=== PATIENT | female | born 1985 | race Caucasian/White ===

== ENCOUNTER 2018-06-09 16:06 | Emergency (ER) | payer OTHER ==
[2018-06-09 16:28] VITALS: TEMP 98.6; BMI 27.7
[2018-06-09] MEDS ORDERED: MECLIZINE HCL 25 MG TABLET (FP) PO ONE (17:47)
--- NOTE | 2018-06-09 17:47 | PDOC ---
History of Present Illness - General Chief Complaint: Lightheaded Stated Complaint: DIZZINESS Time Seen by Provider: 06/09/18 17:06 History Source: Patient - History of Present Illness Initial Comments: 06/09/18 18:59 32F with no pmh presents to the ED for on/off dizziness/vertigo since she woke up today. Also complains of headache, somewhat blurry vision. Exacerbated by standing up. Not exacerbated by movement, seems random, No nausea, vomiting. Never had this happened to her before. 06/09/18 19:00 Past History - Past Medical History Allergies/Adverse Reactions: Allergies Allergy/AdvReac Type Severity Reaction Status Date / Time No Known Allergies Allergy Verified 06/09/18 16:25 Home Medications: Ambulatory Orders NK [No Known Home Medication] 06/09/18 Asthma: No Cancer: No Cardiac Disorders: No Diabetes: No HTN: No Seizures: No Thyroid Disease: No - Suicide/Smoking/Psychosocial Hx Smoking History: Never smoked Have you smoked in the past 12 months: No Hx Alcohol Use: No Drug/Substance Use Hx: No Hx Substance Use Treatment: No Review of Systems - Review of Systems Able to Perform ROS?: Yes Is the patient limited Albanian proficient: No Constitutional: No: Symptoms Reported HEENTM: Yes: See HPI Respiratory: No: Symptoms reported Cardiac (ROS): No: Symptoms Reported ABD/GI: No: Symptoms Reported : No: Symptoms Reported Musculoskeletal: No: Symptoms Reported Integumentary: No: Symptoms Reported Neurological: Yes: See HPI *Physical Exam - Vital Signs Last Vital Signs Temp Pulse Resp BP Pulse Ox 98.6 F 61 18 115/51 L 99 06/09/18 16:27 06/09/18 16:27 06/09/18 16:27 06/09/18 16:27 06/09/18 16:27 - Physical Exam General Appearance: Yes: Nourished, Appropriately Dressed. No: Apparent Distress HEENT: positive: EOMI, [place], Normal ENT Inspection, Other (Negative nystagmus on HITS ) Respiratory/Chest: positive: Lungs Clear, Normal Breath Sounds. negative: Chest Tender, Respiratory Distress Cardiovascular: positive: Regular Rhythm, Regular Rate, S1, S2 Gastrointestinal/Abdominal: positive: Normal Bowel Sounds, Soft. negative: Tender Extremity: positive: Normal Capillary Refill, Normal Inspection, Normal Range of Motion Integumentary: positive: Normal Color, Dry, Warm Neurologic: positive: data solutions architect II-XII NML intact, Fully Oriented, Alert, Normal Mood/ Affect, Normal Response, Motor Strength 5/5, Other (negative Romberg). negative : EOM Palsy, Facial Droop, Numbness, Disoriented, Depressed Affect Moderate Sedation - Procedure Monitoring Vital Signs: Procedure Monitoring Vital Signs Temperature 98.6 F 06/09/18 16:27 Pulse Rate 61 06/09/18 16:27 Respiratory Rate 18 06/09/18 16:27 Blood Pressure 115/51 L 06/09/18 16:27 O2 Sat by Pulse Oximetry (%) 99 06/09/18 16:27 ED Treatment Course - LABORATORY CBC & Chemistry Diagram: 06/09/18 18:22 06/09/18 18:22 Medical Decision Making - Medical Decision Making 06/09/18 19:10 Orthostatic hypotension vs BPPV vs intracranial pathology Will get basic labs, tsh since she mentionned hot flashes, Orthostatics, Treat with meclizine trial, fluids/ Unlikely to mona peripheral vs central vertigo since not exacerbated by motion, no nystagamus on HITS and on/off onset worsed with standing suggest orthostatics. Ct head pending due to neuro symptoms and headaches. Patient signed out to Dr. Jacobs *DC/Admit/Observation/Transfer Diagnosis at time of Disposition: Dizziness on standing - Referrals - Patient Instructions - Post Discharge Activity
[2018-06-09] MEDS ORDERED: MECLIZINE HCL 25 MG TABLET (FP) ONE (18:01)
[2018-06-09] MEDS ORDERED: SODIUM CHLORIDE 1,000 ML IV STA (18:07)
[2018-06-09 18:32] LABS: EOS % 1.4 % (0-4.5); HEMATOCRIT 40.9 % (32.4-45.2); HEMOGLOBIN 14.2 GM/dL (10.7-15.3); LYMPH % 39.5 % (8-40); MCH 31.1 pg (25.7-33.7); MCHC 34.6 g/dl (32.0-36.0); MEAN CELL VOLUME 89.9 fl (80-96); MEAN PLT VOLUME 9.6 fl (7.5-11.1); MONO % 8.7 % (3.8-10.2); NEUT % 49.4 % (42.8-82.8); PLATELET COUNT 234 K/MM3 (134-434); RBC 4.55 M/mm3 (3.60-5.2); RDW 14.7 % (11.6-15.6); WHITE BLOOD COUNT 8.4 K/mm3 (4.0-10.0)
[2018-06-09 18:57] LABS: ALBUMIN 3.9 g/dl (3.4-5.0); ALK PHOS 90 U/L (45-117); ANION GAP 9 MMOL/L (8-16); BILIRUBIN,TOTAL 0.4 mg/dL (0.2-1); BLOOD UREA NITROGEN 10 mg/dL (7-18); CALCIUM 8.6 mg/dL (8.5-10.1); CHLORIDE 106 mmol/L (98-107); CO2 23 mmol/L (21-32); CREATININE 0.6 mg/dL (0.55-1.3); GLUCOSE,RANDOM 88 mg/dL (74-106); POTASSIUM 3.9 mmol/L (3.5-5.1); SGOT/AST 10 U/L (15-37); SGPT/ALT 28 U/L (13-61); SODIUM 138 mmol/L (136-145); TOT PROT 7.3 g/dl (6.4-8.2)
--- NOTE | 2018-06-09 19:36 | PDOC ---
Attending Attestation - Resident Resident Name: RomelMontrell - ED Attending Attestation I have performed the following: I have examined & evaluated the patient, The case was reviewed & discussed with the resident, I agree w/resident's findings & plan, Exceptions are as noted - HPI HPI: 06/09/18 19:31 32 F with no PMH presents to ED with dizziness since waking up this morning. Pt reports room-spinning sensation that is worse with ambulation and turning her head in certain directions. Pt endorses mild headache but denies N/V. Denies neck pain or stiffness. No F/C. No ear pain. No weakness/numbness in any extremity. Pt has never had similar episode before. Pt denies FH or stroke or MD. - Physicial Exam PE: 06/09/18 19:34 "GENERAL: Awake, alert, and fully oriented, in no acute distress. HEAD: No signs of trauma EYES: PERRLA, EOMI, sclera anicteric, conjunctiva clear ENT: Auricles normal inspection, hearing grossly normal, nares patent, oropharynx clear without exudates. Moist mucosa NECK: Nontender, no stepoffs, Normal ROM, supple, no lymphadenopathy, JVD, or masses LUNGS: Breath sounds equal, clear to auscultation bilaterally. No wheezes, and no crackles HEART: Regular rate and rhythm, normal S1 and S2, no murmurs, rubs or gallops ABDOMEN: Soft, nontender, normoactive bowel sounds. No guarding, no rebound. No masses EXTREMITIES: Normal range of motion, no edema. No clubbing or cyanosis. No cords, erythema, or tenderness NEUROLOGICAL: Cranial nerves II through XII intact. 5/5 strength and sensation in all extremities, Normal speech, normal gait, normal cerebellar function SKIN: Warm, Dry, normal turgor, no rashes or lesions noted. - Medical Decision Making 06/09/18 19:36 32 F with positional room spinning dizziness since this morning. Suspect BPPV. On exam in ED, pt is well appearing with no nystagmus, no neuro deficits, ambulatory with steady gait. No risk factors for CVA but will obtain CT head given mild headache. - Labs, UA, UPT - CT head - IVF meclizine 06/09/18 19:39 Labs so far unremarkable. Pt signed out to oncoming attending, pending UA/UPT, CT head, and re-evaluation.
[2018-06-09] MEDS ORDERED: ACETAMINOPHEN 1000 MG/100 ML VIAL (NON FORMULARY) IVPB ONE (19:38)
[2018-06-09] MEDS ORDERED: METOCLOPRAMIDE HCL INJECTION 10 MG/2 ML VIAL IVPB ONE (19:38)
[2018-06-09] MEDS ORDERED: METOCLOPRAMIDE HCL INJECTION 10 MG/2 ML VIAL ONE (19:41)
[2018-06-09] MEDS ORDERED: ACETAMINOPHEN INJECTION 100 ML IVPB ONE (19:41)
[2018-06-09 20:26] LABS: URINE APPEARANCE CLEAR; URINE BILIRUBIN NEGATIVE (<2.0 mg/dL); URINE COLOR YELLOW; URINE GLUCOSE (UA) NEGATIVE (NEGATIVE); URINE KETONE NEGATIVE (NEGATIVE); URINE LEUK ESTERASE NEGATIVE (NEGATIVE); URINE NITRITE NEGATIVE (NEGATIVE); URINE PROTEIN NEGATIVE (NEGATIVE); URINE UROBILINOGEN NEGATIVE mg/dL (0.2-1.0)
--- NOTE | 2018-06-09 20:40 | PDOC ---
*Physical Exam - Vital Signs Last Vital Signs Temp Pulse Resp BP Pulse Ox 98.6 F 61 18 115/51 L 99 06/09/18 16:27 06/09/18 16:27 06/09/18 16:27 06/09/18 16:27 06/09/18 16:27 ED Treatment Course - LABORATORY CBC & Chemistry Diagram: 06/09/18 18:22 06/09/18 18:22 - ADDITIONAL ORDERS Additional order review: Laboratory Results 06/09/18 06/09/18 06/09/18 18:27 18:22 18:22 Sodium 138 Potassium 3.9 Chloride 106 Carbon Dioxide 23 Anion Gap 9 BUN 10 Creatinine 0.6 Creat Clearance w eGFR > 60 Random Glucose 88 Calcium 8.6 Total Bilirubin 0.4 AST 10 L ALT 28 Alkaline Phosphatase 90 Troponin I < 0.02 Total Protein 7.3 Albumin 3.9 TSH 2.09 Urine HCG, Qual Negative 06/09/18 18:22 RBC 4.55 MCV 89.9 MCHC 34.6 RDW 14.7 MPV 9.6 Neutrophils % 49.4 D Lymphocytes % 39.5 D Monocytes % 8.7 Eosinophils % 1.4 D Basophils % 1.0 - Medications Given in the ED: ED Medications Discontinued Medications Generic Name Dose Route Start Last Admin Trade Name Freq PRN Reason Stop Dose Admin Acetaminophen 1,000 mg 06/09/18 19:38 06/09/18 20:11 Ofirmev Injection - IVPB 06/09/18 19:39 1,000 mg ONCE ONE Administration Sodium Chloride 1,000 mls @ 1,000 mls/hr 06/09/18 18:07 06/09/18 18:38 Normal Saline - IV 06/09/18 19:06 1,000 mls/hr ASDIR STA Administration Meclizine HCl 25 mg 06/09/18 17:47 06/09/18 18:03 Antivert - PO 06/09/18 17:48 25 mg ONCE ONE Administration Metoclopramide HCl 10 mg 06/09/18 19:38 06/09/18 19:48 Reglan Injection - IVPB 06/09/18 19:39 10 mg ONCE ONE Administration Medical Decision Making - Medical Decision Making 06/09/18 20:[address] Urena 32 yo female presents to the ED with dizziness and headache. Pt received tylenol and reglan with improvement of both dizziness and HUERTA. No concerning or unilateral neurological findings. States she does not want to have the Head CT and feels much better. Dr. Frias agrees to have pt DC home with Neurology follow up and over the counter tylenol for pain. Strict return precautions given. Pt understands plan and agrees. *DC/Admit/Observation/Transfer Diagnosis at time of Disposition: Dizziness on standing Headache Qualifiers: Headache type: unspecified Headache chronicity pattern: unspecified pattern Intractability: not intractable Qualified Code(s): R51 - Headache - Discharge Dispostion Disposition: HOME Condition at time of disposition: Stable Decision to Admit order: No - Referrals Referrals: Chapin Tyson MD [Staff Physician] - - Patient Instructions Printed Discharge Instructions: DI for Headache, DI for Dizziness-Nonvertigo Additional Instructions: Por favor, jd donovan myrtle con aaron mdico de atencin primaria y el neurlogo que se lo remiti dentro de las prximas 24 a 48 horas. Beardsley el contador de Tylenol para los paula de charmaine segn sea necesario cada 4-6 horas. Regrese a la huong de emergencias para los sntomas nuevos o que empeoran, incluidos, entre otros, los siguientes: palua de [place] intensos que no mejoran con los medicamentos, cambios en la visin o el habla, debilidad o cambios sensoriales en 1 lado de aaron cuerpo. Gl[place]y Print Language: LAO - Post Discharge Activity
[2018-06-09 20:55] VITALS: BP 113/86; PULSE 65
--- NOTE | 2018-06-10 11:46 | EKG ---
Test Reason : Blood Pressure : / mmHG Vent. Rate : 045 BPM Atrial Rate : 045 BPM P-R Int : 186 ms QRS Dur : 094 ms QT Int : 450 ms P-R-T Axes : 008 072 029 degrees QTc Int : 389 ms SINUS BRADYCARDIA LOW VOLTAGE QRS BORDERLINE ECG NO PREVIOUS ECGS AVAILABLE Confirmed by RADHA DÍAZ, KAUR ([id number]) on 06/10/2018 11:45:45 AM Referred By: Confirmed By:KAUR GARCIA MD
== END 2018-06-09 21:01 | disposition home or self-care (01) ==
LOC: JER 16:06
PROC: 3E0337Z Introduction of Electrolytic and Water Balance Substance into Peripheral Vein, Percutaneous Approach (ICD-10-PCS; principal; 2018-06-09)
PROC: 3E033GC Introduction of Other Therapeutic Substance into Peripheral Vein, Percutaneous Approach (ICD-10-PCS; 2018-06-09)
PROC: 3E033NZ Introduction of Analgesics, Hypnotics, Sedatives into Peripheral Vein, Percutaneous Approach (ICD-10-PCS; 2018-06-09)
DX: R42 Dizziness and giddiness (principal)
CPT/HCPCS: 36415; 80053; 81003; 84443; 84484; 84703; 85025; 87086; 93005; 93010; 99283-25; J0131; J7030

== ENCOUNTER 2018-07-15 08:58 | Emergency (ER) | payer OTHER ==
[2018-07-15 09:10] VITALS: TEMP 98.6; BMI 27.3
[2018-07-15] MEDS ORDERED: SODIUM CHLORIDE 1,000 ML IV STA (09:37)
[2018-07-15] MEDS ORDERED: ACETAMINOPHEN 1000 MG/100 ML VIAL (NON FORMULARY) IVPB ONE (09:37)
--- NOTE | 2018-07-15 09:37 | PDOC ---
History of Present Illness - General Chief Complaint: Pain, Acute Stated Complaint: PAIN Time Seen by Provider: 07/15/18 09:23 Past History - Travel Traveled outside of the country in the last 30 days: No Close contact w/someone who was outside of country & ill: No - Past Medical History Allergies/Adverse Reactions: Allergies Allergy/AdvReac Type Severity Reaction Status Date / Time No Known Allergies Allergy Verified 07/15/18 09:07 Home Medications: Ambulatory Orders Ibuprofen 600 mg PO Q6H #30 tablet 07/15/18 Asthma: No Cancer: No Cardiac Disorders: No COPD: No Diabetes: No HTN: No Seizures: No Thyroid Disease: No - Suicide/Smoking/Psychosocial Hx Smoking History: Never smoked Have you smoked in the past 12 months: No Hx Alcohol Use: No Drug/Substance Use Hx: No Hx Substance Use Treatment: No Review of Systems - Review of Systems Able to Perform ROS?: Yes Comments:: 07/15/18 14:07 CONSTITUTIONAL: Absent: fever, chills, diaphoresis, generalized weakness, malaise, loss of appetite HEENT: Absent: rhinorrhea, nasal congestion, throat pain, throat swelling, difficulty swallowing, mouth swelling, ear pain, eye pain, visual Changes CARDIOVASCULAR: Absent: chest pain, loss of consciousness, palpitations, irregular heart rate, peripheral edema RESPIRATORY: Absent: cough, shortness of breath, dyspnea with exertion, orthopnea, wheezing, stridor, hemoptysis GASTROINTESTINAL: Absent: abdominal pain, abdominal distension, nausea, vomiting, diarrhea, constipation, melena, hematochezia GENITOURINARY: Absent: dysuria, frequency, urgency, hesitancy, hematuria, flank pain, genital pain MUSCULOSKELETAL: Absent: myalgia, arthralgia, joint swelling SKIN: Absent: rash, itching, pallor HEMATOLOGIC/IMMUNOLOGIC: Absent: easy bleeding, easy bruising, lymphadenopathy, frequent infections ENDOCRINE: Absent: unexplained weight gain, unexplained weight loss, heat intolerance, cold intolerance NEUROLOGIC: Absent: headache, focal weakness or paresthesias, dizziness, unsteady gait, seizure, mental status changes, bladder or bowel incontinence PSYCHIATRIC: Absent: anxiety, depression, suicidal or homicidal ideation, hallucinations. Is the patient limited Micronesian proficient: No *Physical Exam - Vital Signs Last Vital Signs Temp Pulse Resp BP Pulse Ox 98.6 F 103 H 18 96/64 99 07/15/18 09:08 07/15/18 09:08 07/15/18 09:08 07/15/18 09:08 07/15/18 09:08 - Physical Exam Comments: 07/15/18 14:08 GENERAL: Well developed, well nourished. Awake and alert. No acute distress. HEENT: Normocephalic, atraumatic. PERRLA, EOMI. No conjunctival pallor. Sclera are non- icteric. Moist mucous membranes. Oropharynx is clear. NECK: Supple. Full ROM. No JVD. Carotid pulses 2+ and symmetric, without bruits. No thyromegaly. No lymphadenopathy. CARDIOVASCULAR: Regular rate and rhythm. No murmurs, rubs, or gallops. Distal pulses are 2+ and symmetric. PULMONARY: No evidence of respiratory distress. Lungs clear to auscultation bilaterally. No wheezing, rales or rhonchi. ABDOMINAL: Soft. Non-tender. Non-distended. No rebound or guarding. No organomegaly. Normoactive bowel sounds. MUSCULOSKELETAL Normal range of motion at all joints. No bony deformities or tenderness. No CVA tenderness. EXTREMITIES: No cyanosis. No clubbing. No edema. No calf tenderness. SKIN: Warm and dry. Normal capillary refill. No rashes. No jaundice. NEUROLOGICAL: Alert, awake, appropriate. Cranial nerves 2-12 intact. No deficits to light touch and temperature in face, upper extremities and lower extremities. No motor deficits in the in face, upper extremities and lower extremities. Normoreflexic in the upper and lower extremities. Normal speech. Toes are down- going bilaterally. Gait is normal without ataxia. PSYCHIATRIC: Cooperative. Good eye contact. Appropriate mood and affect. Moderate Sedation - Procedure Monitoring Vital Signs: Procedure Monitoring Vital Signs Temperature 98.6 F 07/15/18 09:08 Pulse Rate 103 H 07/15/18 09:08 Respiratory Rate 18 07/15/18 09:08 Blood Pressure 96/64 07/15/18 09:08 O2 Sat by Pulse Oximetry (%) 99 07/15/18 09:08 ED Treatment Course - LABORATORY CBC & Chemistry Diagram: 07/15/18 10:15 07/15/18 09:55 Medical Decision Making - Medical Decision Making 07/15/18 14:08 Pt is a 33 y/o F with no PMH who presents to the ED with abdominal pain since last night. Pt reports that the pain was colicky in nature and she states she is currently pain free in the ED -On exam TTP of the epigastric region, RUQ -Abdomen US is negative for gallstones. Most likely hepatomegaly. LFT's normal at this time -Tbili, lipase, WBC's WNL -No definitive source for patients pain. She is currently pain free. VSS, patient afebrile -Will refer to GI -DC home -I discussed the physical exam findings, ancillary test results and final diagnoses with the patient. I answered all of the patient's questions. The patient was satisfied with the care received and felt comfortable with the discharge plan and treatment plan. The Patient agrees to follow up with the primary care physician/specialist within 24-72 hours. Return precautions were given. *DC/Admit/Observation/Transfer Diagnosis at time of Disposition: Abdominal pain Qualifiers: Abdominal location: generalized Qualified Code(s): R10.84 - Generalized abdominal pain - Discharge Dispostion Disposition: HOME Condition at time of disposition: Stable Decision to Admit order: No - Referrals Referrals: Arvind Linda DO [Staff Physician] - - Patient Instructions Printed Discharge Instructions: DI for Abdominal Pain-Adult Additional Instructions: You were evaluated for your abdominal pain today Your gallbladder was normal Your lab work was normal You may take Motrin 600mg every 6 hours as needed for pain Please follow up with gastroenterology (stomach specialists). A referral has been provided Return to the ED for any new or worsening symptoms Te evaluaron por tu dolor abdominal hoy Marroquin vescula biliar era normal. Tu trabajo de laboratorio fue normal Puede haydee Motrin 600 mg cada 6 horas segn sea necesario para el dolor. Por favor, seguimiento con gastroenterologa (especialistas en estmago). Se kiser proporcionado donovan referencia Regrese a la huong de emergencias para cualquier sntoma nuevo o que empeore. Print Language: GREEK - Post Discharge Activity Forms/Work/School Notes: Back to Work
[2018-07-15] MEDS ORDERED: ACETAMINOPHEN INJECTION 100 ML IVPB ONE (09:55)
--- NOTE | 2018-07-15 10:06 | PDOC ---
*Physical Exam - Vital Signs Last Vital Signs Temp Pulse Resp BP Pulse Ox 98.6 F 103 H 18 96/64 99 07/15/18 09:08 07/15/18 09:08 07/15/18 09:08 07/15/18 09:08 07/15/18 09:08 ED Treatment Course - LABORATORY CBC & Chemistry Diagram: 07/15/18 10:15 07/15/18 09:55 Medical Decision Making - Medical Decision Making 07/15/18 10:05 Pt seen by Midlevel Provider under my direct supervision Pt presents with luq and epigastric pain No vomiting Will plan to do basic labs, US Pepcid ReAssess Ancillary studies reviewed I agree with plan as outlined by Midlevel Provider 07/15/18 11:11 Laboratory Tests 07/15/18 10:15 Urine Nitrite Negative Ur Leukocyte Esterase Negative Urine HCG, Qual Negative 07/15/18 12:16 Laboratory Tests 07/15/18 07/15/18 07/15/18 09:55 09:55 10:15 WBC 10.3 H Hgb 14.9 Hct 43.8 Plt Count 187 D Neutrophils % 86.2 H D INR 1.08 Sodium 137 Potassium 4.0 Chloride 104 Carbon Dioxide 27 BUN 10 Creatinine 0.7 Random Glucose 88 Total Bilirubin 0.6 AST 11 L ALT 34 07/15/18 13:19 US fatty infiltration, hepatocellular disease, no gallstones Will re assess D/c to home *DC/Admit/Observation/Transfer Diagnosis at time of Disposition: Abdominal pain - Discharge Dispostion Disposition: HOME Condition at time of disposition: Stable - Prescriptions Prescriptions: Ibuprofen 600 mg PO Q6H #30 tablet - Referrals Referrals: Arvind Linda DO [Staff Physician] - - Patient Instructions Printed Discharge Instructions: DI for Abdominal Pain-Adult Additional Instructions: You were evaluated for your abdominal pain today Your gallbladder was normal Your lab work was normal You may take Motrin 600mg every 6 hours as needed for pain Please follow up with gastroenterology (stomach specialists). A referral has been provided Return to the ED for any new or worsening symptoms Te evaluaron por tu dolor abdominal hoy Marroquin vescula biliar era normal. Tu trabajo de laboratorio fue normal Puede haydee Motrin 600 mg cada 6 horas segn sea necesario para el dolor. Por favor, seguimiento con gastroenterologa (especialistas en estm[place]). Se kiser proporcionado donovan referencia Regrese a la huong de emergencias para cualquier sntoma nuevo o que empeore. Print Language: GEORGIAN - Post Discharge Activity Forms/Work/School Notes: Back to Work
[2018-07-15 10:52] LABS: HCG,QUALITATIVE URINE Negative
[2018-07-15 10:59] LABS: URINE APPEARANCE CLEAR; URINE BILIRUBIN NEGATIVE (<2.0 mg/dL); URINE COLOR YELLOW; URINE GLUCOSE (UA) NEGATIVE (NEGATIVE); URINE KETONE NEGATIVE (NEGATIVE); URINE LEUK ESTERASE NEGATIVE (NEGATIVE); URINE NITRITE NEGATIVE (NEGATIVE); URINE PROTEIN NEGATIVE (NEGATIVE); URINE UROBILINOGEN NEGATIVE mg/dL (0.2-1.0)
[2018-07-15 11:09] LABS: EPI CELLS RARE /HPF (FEW); URINE MUCUS MANY
[2018-07-15 11:52] LABS: BASO % 0.3 % (0-2.0); EOS % 0.7 % (0-4.5); HEMATOCRIT 43.8 % (32.4-45.2); HEMOGLOBIN 14.9 GM/dL (10.7-15.3); LYMPH % 9.2 % (8-40); MEAN CELL VOLUME 91.2 fl (80-96); MEAN PLT VOLUME 11.2 fl (7.5-11.1); MONO % 3.6 % (3.8-10.2); NEUT % 86.2 % (42.8-82.8); PLATELET COUNT 187 K/MM3 (134-434); RBC 4.81 M/mm3 (3.60-5.2); RDW 14.6 % (11.6-15.6); WHITE BLOOD COUNT 10.3 K/mm3 (4.0-10.0)
[2018-07-15 12:05] LABS: INR 1.08 (0.83-1.09); PROTHROMBIN TIME (PATIENT) 12.7 SEC (9.7-13.0)
[2018-07-15 12:14] LABS: ALK PHOS 88 U/L (45-117); ANION GAP 7 MMOL/L (8-16); BILIRUBIN,TOTAL 0.6 mg/dL (0.2-1); BLOOD UREA NITROGEN 10 mg/dL (7-18); CALCIUM 8.1 mg/dL (8.5-10.1); CHLORIDE 104 mmol/L (98-107); CO2 27 mmol/L (21-32); CREATININE 0.7 mg/dL (0.55-1.3); GLUCOSE,RANDOM 88 mg/dL (74-106); SGOT/AST 11 U/L (15-37); SGPT/ALT 34 U/L (13-61); SODIUM 137 mmol/L (136-145); TOT PROT 7.4 g/dl (6.4-8.2)
[2018-07-15 15:40] VITALS: BP 107/61; PULSE 83
== END 2018-07-15 15:43 | disposition home or self-care (01) ==
LOC: JER 08:58
PROC: 3E033NZ Introduction of Analgesics, Hypnotics, Sedatives into Peripheral Vein, Percutaneous Approach (ICD-10-PCS; principal; 2018-07-15)
DX: R10.84 Generalized abdominal pain (principal)
CPT/HCPCS: 36415; 76705-TC; 80053; 81003; 81015; 83690; 84703; 85025; 85610; 87086; 96374; 99283-25; J0131; J7030

== ENCOUNTER 2020-10-14 09:43 | Emergency (ER) | payer OTHER ==
[2020-10-14 09:56] VITALS: BP 145/91; PULSE 75; TEMP 98.2; BMI 29.2
[2020-10-14 11:19] LABS: HCG,QUALITATIVE URINE Negative
[2020-10-14 11:20] LABS: EPI CELLS 25 /uL (0-25.1); HYALINE CASTS 2 /uL (0-3.1); URINE APPEARANCE CLEAR; URINE BACTERIA 3534 /uL (0-1359); URINE BILIRUBIN NEGATIVE (NEGATIVE); URINE COLOR YELLOW; URINE GLUCOSE (UA) NEGATIVE (NEGATIVE); URINE KETONE TRACE (NEGATIVE); URINE LEUK ESTERASE TRACE (NEGATIVE); URINE NITRITE NEGATIVE (NEGATIVE); URINE PROTEIN NEGATIVE (NEGATIVE); URINE RBC 14 /uL (0-23.9); URINE UROBILINOGEN 0.2 mg/dL (0.2-1.0); URINE WBC 34 /uL (0-25.8)
== END 2020-10-14 14:09 | disposition home or self-care (01) ==
LOC: JER 09:43
DX: R10.2 Pelvic and perineal pain (principal)
CPT/HCPCS: 76830-TC; 81003; 84703; 87086; 99284-25

== ENCOUNTER 2021-08-03 14:49 | Emergency (ER) | payer OTHER ==
[2021-08-03 15:08] VITALS: TEMP 97.7; BMI 28.5
[2021-08-03] MEDS ORDERED: KETOROLAC TROMETHAMINE 30 MG/1 ML VIAL IVPB ONE ×2 (15:28→18:11)
[2021-08-03] MEDS ORDERED: SODIUM CHLORIDE 0.9% 500 ML INFUS.BAG IV ONE (15:28)
[2021-08-03] MEDS ORDERED: morphine CARPU-JECT 2 MG/1 ML DISP.SYRIN IVPUSH ONE (15:30)
[2021-08-03] MEDS ORDERED: KETOROLAC TROMETHAMINE 30 MG/1 ML VIAL ONE ×2 (15:39→18:16)
[2021-08-03 16:08] LABS: BASO % 0.6 % (0-2.0); EOS % 1.1 % (0-4.5); HEMATOCRIT 43.1 % (32.4-45.2); HEMOGLOBIN 14.5 GM/dL (10.7-15.3); LYMPH % 37.6 % (8-40); MCH 30.3 pg (25.7-33.7); MCHC 33.6 g/dl (32.0-36.0); MEAN CELL VOLUME 90.2 fl (80-96); MEAN PLT VOLUME 9.3 fl (7.5-11.1); MONO % 7.2 % (3.8-10.2); NEUT % 53.5 % (42.8-82.8); PLATELET COUNT 205 10^3/uL (134-434); RBC 4.78 M/mm3 (3.60-5.2); RDW 14.5 % (11.6-15.6); WHITE BLOOD COUNT 7.9 K/mm3 (4.0-10.0)
[2021-08-03 16:12] LABS: EPI CELLS 15 /uL (0-25.1); HYALINE CASTS 1 /uL (0-3.1); URINE APPEARANCE CLEAR; URINE BACTERIA 781 /uL (0-1359); URINE BILIRUBIN NEGATIVE (NEGATIVE); URINE COLOR YELLOW; URINE GLUCOSE (UA) NEGATIVE (NEGATIVE); URINE KETONE NEGATIVE (NEGATIVE); URINE LEUK ESTERASE TRACE (NEGATIVE); URINE NITRITE NEGATIVE (NEGATIVE); URINE PROTEIN NEGATIVE (NEGATIVE); URINE RBC 4 /uL (0-23.9); URINE UROBILINOGEN 0.2 mg/dL (0.2-1.0); URINE WBC 27 /uL (0-25.8)
[2021-08-03 16:32] LABS: CALCIUM 8.8 mg/dL (8.5-10.1)
[2021-08-03 16:33] LABS: ALBUMIN 4.1 g/dl (3.4-5.0); BLOOD UREA NITROGEN 11.5 mg/dL (7-18)
[2021-08-03 16:36] LABS: CREATININE 0.7 mg/dL (0.55-1.3)
[2021-08-03 16:38] LABS: BILIRUBIN,TOTAL 0.4 mg/dL (0.2-1); TOT PROT 7.6 g/dl (6.4-8.2)
[2021-08-03 20:28] VITALS: BP 138/60; PULSE 72
== END 2021-08-03 20:28 | disposition home or self-care (01) ==
LOC: JER 14:49
PROC: 3E033GC Introduction of Other Therapeutic Substance into Peripheral Vein, Percutaneous Approach (ICD-10-PCS; principal; 2021-08-03)
DX: N20.0 Calculus of kidney (principal); N83.292 Other ovarian cyst, left side
CPT/HCPCS: 36415; 74176-TC; 76830-TC; 80053; 81003; 84703; 85025; 87086; 96374; 96375; 96376; 99285-25

== ENCOUNTER 2022-05-21 09:54 | Emergency (ER) | payer OTHER ==
[2022-05-21 10:04] VITALS: BP 123/78; PULSE 60; RESP 18; TEMP 98; BMI 27.3
== END 2022-05-21 10:42 | disposition home or self-care (01) ==
LOC: JER 09:54
DX: H60.502 Unspecified acute noninfective otitis externa, left ear (principal)
CPT/HCPCS: 99283-25

== ENCOUNTER 2024-08-25 22:05 | Inpatient (IN) | payer OTHER ==
[2024-08-25] MEDS: LACTATED RINGERS SOLUTION 1,000 ML IV ONE (22:15)
[2024-08-26] MEDS ORDERED: BUTORPHANOL TARTRATE 2 MG/ML VIAL ONE (00:25)
[2024-08-26] MEDS ORDERED: PROMETHAZINE HCL 25 MG/1 ML VIAL ONE (00:26)
[2024-08-26] MEDS: PROMETHAZINE HCL 25 MG/1 ML VIAL IVPB ONE (00:30)
[2024-08-26] MEDS: BUTORPHANOL TARTRATE 1 MG/ML VIAL IVPUSH ONE (00:30)
[2024-08-26] MEDS: LACTATED RINGERS SOLUTION 1,000 ML IV SCH (02:30)
[2024-08-26 04:31] LABS: BASO % 0.2 % (0-2.0); HEMATOCRIT 40.1 % (32.4-45.2); HEMOGLOBIN 13.7 GM/dL (10.7-15.3); LYMPH % 13.2 % (8-40); MCH 32.7 pg (25.7-33.7); MCHC 34.2 g/dl (32.0-36.0); MEAN CELL VOLUME 95.8 fl (80-96); MEAN PLT VOLUME 11.6 fl (7.5-11.1); MONO % 4.4 % (3.8-10.2); NEUT % 82.2 % (42.8-82.8); PLATELET COUNT 110 10^3/uL (134-434); RBC 4.18 M/mm3 (3.60-5.2); RDW 14.7 % (11.6-15.6); WHITE BLOOD COUNT 10.6 K/mm3 (4.0-10.0)
[2024-08-26] MEDS: OXYTOCIN 20 UNITS in 0.9% NS 20 UNIT/1,000 ML INFUS.BAG IV SCH (04:35)
[2024-08-26 04:38] LABS: INR 0.96 (0.83-1.09); PROTHROMBIN TIME (PATIENT) 10.5 SEC (9.7-13.0)
[2024-08-26 04:41] LABS: ACTIVATED PTT 29.4 SECONDS (25.2-36.5)
[2024-08-26 04:53] LABS: POTASSIUM 4.2 mmol/L (3.5-5.1)
[2024-08-26 04:54] LABS: CALCIUM 8.4 mg/dL (8.5-10.1)
[2024-08-26 04:55] LABS: BLOOD UREA NITROGEN 11.4 mg/dL (7-18)
[2024-08-26 04:58] LABS: CREATININE 0.6 mg/dL (0.55-1.3)
[2024-08-26 05:24] LABS: CORD HCO3 20.7 mmHg (20-29); CORD pH 7.281 (7.14-7.44)
[2024-08-26 05:25] LABS: CORD BASE EXCESS -9.3 mmol/L (0-2); CORD HCO3 20.8 mmHg (20-29); CORD PCO2 60.6 mmHg (30-78); CORD pH 7.154 (7.14-7.44)
[2024-08-26] MEDS ORDERED: METHYLERGONOVINE MALEATE 0.2 MG/1 ML AMP IM PRN (05:38)
[2024-08-26] MEDS ORDERED: BISACODYL 10 MG SUPP.RECT RC PRN (05:38)
[2024-08-26] MEDS ORDERED: BENZOCAINE 20% 57 GM BOTTLE TP PRN (05:38)
[2024-08-26] MEDS ORDERED: BENZOCAINE 28 GM HEMORRHOIDAL OINTMENT TP PRN (05:38)
[2024-08-26] MEDS ORDERED: WITCH HAZEL 50% (TUCKS) 40 PAD/JAR PAD TP PRN (05:38)
[2024-08-26 05:44] VITALS: BMI 34.3
[2024-08-26 05:55] LABS: HIV INTERPRETATION NEGATIVE (NEGATIVE)
[2024-08-26] MEDS ORDERED: IBUPROFEN 600 MG TABLET (FP) PO ONE (06:32)
[2024-08-26] MEDS: IBUPROFEN 600 MG TABLET (FP) PO PRN (06:34)
[2024-08-26] MEDS: PRENATAL VITAMINS W/ FOLIC ACID TABLET (FP) PO SCH (09:40)
[2024-08-26] MEDS: FERROUS SO4 325 MG TABLET (FP) PO SCH (09:40)
[2024-08-26] MEDS: oxyCODONE HCL 5 MG TABLET PO PRN (14:07)
[2024-08-27 08:15] LABS: BASO % 0.4 % (0-2.0); EOS % 0.6 % (0-4.5); HEMATOCRIT 34.6 % (32.4-45.2); HEMOGLOBIN 11.5 GM/dL (10.7-15.3); LYMPH % 26.8 % (8-40); MCH 32.1 pg (25.7-33.7); MCHC 33.1 g/dl (32.0-36.0); MEAN CELL VOLUME 96.8 fl (80-96); MEAN PLT VOLUME 10.8 fl (7.5-11.1); MONO % 6.4 % (3.8-10.2); NEUT % 65.8 % (42.8-82.8); PLATELET COUNT 213 10^3/uL (134-434); RBC 3.57 M/mm3 (3.60-5.2); RDW 15.2 % (11.6-15.6); WHITE BLOOD COUNT 10.9 K/mm3 (4.0-10.0)
[2024-08-27] MEDS: ACETAMINOPHEN 1000 MG/100 ML BAG IVPB ONE (10:06)
[2024-08-27] MEDS: IBUPROFEN (CALDOLOR) 800 MG/200 ML PREMIX BAGS IVPB ONE (12:11)
[2024-08-27] MEDS: ACETAMINOPHEN 325 MG TABLET (FP) PO PRN (15:25)
[2024-08-27] MEDS: oxyCODONE HCL 5 MG TABLET PO PRN (18:37)
[2024-08-27] MEDS ORDERED: SENNOSIDES/DOCUSATE COMBO (SENNA PLUS) TABLET (UD) PO PRN (22:00)
[2024-08-27 23:33] VITALS: RESP 18
[2024-08-28 08:56] VITALS: BP 116/74; PULSE 69; TEMP 98.1
== END 2024-08-28 14:45 | disposition home or self-care (01) | DRG 560 ==
LOC: JDEL 22:05 → JLDR 08-26 03:45 → J3W 08-26 08:45
PROVIDERS: ADMIT Obstetrics & Gynecology; ATTEND Obstetrics & Gynecology
PROC: 10E0XZZ Delivery of Products of Conception, External Approach (ICD-10-PCS; principal; 2024-08-26)
PROC: 0KQM0ZZ Repair Perineum Muscle, Open Approach (ICD-10-PCS; 2024-08-26)
DX: O70.1 Second degree perineal laceration during delivery (principal); Z3A.38 38 weeks gestation of pregnancy; Z37.0 Single live birth; O99.893 Other specified diseases and conditions complicating puerperium; M25.552 Pain in left hip; M25.551 Pain in right hip; O71.6 Obstetric damage to pelvic joints and ligaments
CPT/HCPCS: 36415; 36600; 59025; 59409; 72220-TC-FY; 73521-TC-FY; 80048; 82803; 85025; 85610; 85730; 86850; 86900; 86901; 87389; 97116-GP; 97161-GP; J0131